=== PATIENT | female | born 1980 | race Caucasian/White ===

== ENCOUNTER 2024-03-14 06:36 | Day surgery (SDC) | payer OTHER, SELFPAY ==
[2024-03-14] VITALS (10 sets, daily range): BP systolic 102–118; BP diastolic 51–72; BMI 40.0
[2024-03-14] MEDS: Pyridium 200 MG PO (10:22)
[2024-03-14] MEDS: NORMOSOL-R 1000 IV (10:31)
[2024-03-14] MEDS: TYLENOL 1000 MG PO (10:36)
[2024-03-14] MEDS: DUONEB 3 ML INH (10:45)
[2024-03-14] MEDS: ROXICODONE 5 MG PO (15:23)
== END 2024-03-14 15:34 | disposition home or self-care (01) ==
LOC: SDS 06:36
PROVIDERS: ATTENDING PHYSICIAN Obstetrics & Gynecology
DX: N39.3 Stress incontinence (female) (male) (principal)
CPT/HCPCS: 57288; 94640; C1771

== ENCOUNTER → 2024-07-28 15:05 | Outpatient (REF) | payer OTHER, SELFPAY | LOC: RAD 15:05 | PROVIDERS: ATTENDING PHYSICIAN Nurse Practitioner | DX: M25.512 Pain in left shoulder (principal) | CPT/HCPCS: 73030 ==

== ENCOUNTER 2024-08-23 18:48 | Outpatient (RCR) | payer OTHER, SELFPAY | END 2024-08-23 23:59 | disposition home or self-care (01) | LOC: RPT 18:48 | PROVIDERS: ATTENDING PHYSICIAN Obstetrics & Gynecology | DX: N39.3 Stress incontinence (female) (male) (principal); R39.14 Feeling of incomplete bladder emptying; M62.89 Other specified disorders of muscle; Z73.6 Limitation of activities due to disability | CPT/HCPCS: 97110; 97162 ==

== ENCOUNTER 2024-09-18 19:00 | Outpatient (RCR) | payer OTHER, SELFPAY | END 2024-09-18 23:59 | disposition home or self-care (01) | LOC: RPT 19:00 | PROVIDERS: ATTENDING PHYSICIAN Obstetrics & Gynecology | DX: N39.3 Stress incontinence (female) (male) (principal); R39.14 Feeling of incomplete bladder emptying; M62.89 Other specified disorders of muscle; Z73.6 Limitation of activities due to disability | CPT/HCPCS: 97014; 97110; 97112; 97140; 97530 ==

== ENCOUNTER 2024-10-25 15:00 | Outpatient (RCR) | payer OTHER, SELFPAY | END 2024-10-25 23:59 | disposition home or self-care (01) | LOC: RPT 15:00 | PROVIDERS: ATTENDING PHYSICIAN Obstetrics & Gynecology | DX: N39.3 Stress incontinence (female) (male) (principal); R39.14 Feeling of incomplete bladder emptying; M62.89 Other specified disorders of muscle; Z73.6 Limitation of activities due to disability | CPT/HCPCS: 97014; 97110; 97112; 97140; 97530 ==

== ENCOUNTER 2024-11-08 17:02 | Outpatient (RCR) | payer OTHER, SELFPAY | END 2024-11-08 23:59 | disposition home or self-care (01) | LOC: RPT 17:02 | PROVIDERS: ATTENDING PHYSICIAN Obstetrics & Gynecology | DX: N39.3 Stress incontinence (female) (male) (principal); R39.14 Feeling of incomplete bladder emptying; M62.89 Other specified disorders of muscle; Z73.6 Limitation of activities due to disability | CPT/HCPCS: 97014; 97110; 97112; 97140; 97530 ==

== ENCOUNTER → 2024-12-20 19:04 | Outpatient (REF) | payer OTHER, SELFPAY | LOC: WDC 19:04 | PROVIDERS: ATTENDING PHYSICIAN Obstetrics & Gynecology Gynecology; FAMILY PHYSICIAN Nurse Practitioner | DX: Z12.31 Encounter for screening mammogram for malignant neoplasm of breast (principal) | CPT/HCPCS: 77063; 77067 ==

== ENCOUNTER 2024-12-27 17:03 | Outpatient (RCR) | payer OTHER, SELFPAY | END 2024-12-27 23:59 | disposition home or self-care (01) | LOC: RPT 17:03 | PROVIDERS: ATTENDING PHYSICIAN Obstetrics & Gynecology | DX: N39.3 Stress incontinence (female) (male) (principal); R39.14 Feeling of incomplete bladder emptying; M62.89 Other specified disorders of muscle; Z73.6 Limitation of activities due to disability | CPT/HCPCS: 97014; 97110; 97112; 97140; 97530 ==

== ENCOUNTER 2025-01-08 17:03 | Outpatient (RCR) | payer OTHER, SELFPAY | END 2025-01-08 23:59 | disposition home or self-care (01) | LOC: RPT 17:03 | PROVIDERS: ATTENDING PHYSICIAN Obstetrics & Gynecology | DX: N39.3 Stress incontinence (female) (male) (principal); R39.14 Feeling of incomplete bladder emptying; M62.89 Other specified disorders of muscle; Z73.6 Limitation of activities due to disability | CPT/HCPCS: 97014; 97110; 97112; 97140; 97530 ==

== ENCOUNTER 2025-02-14 11:08 | Outpatient (RCR) | payer OTHER, SELFPAY | END 2025-02-14 12:27 | disposition home or self-care (01) | LOC: RPT 11:08 | PROVIDERS: ATTENDING PHYSICIAN Obstetrics & Gynecology | DX: N39.3 Stress incontinence (female) (male) (principal); R39.14 Feeling of incomplete bladder emptying; M62.89 Other specified disorders of muscle; Z73.6 Limitation of activities due to disability | CPT/HCPCS: 97014; 97110; 97140; 97530 ==

== ENCOUNTER 2025-06-17 21:46 | Emergency (ER) | payer OTHER, SELFPAY ==
[2025-06-17 22:06] VITALS: BP 139/81
[2025-06-18 01:37] VITALS: BMI 44.6
[2025-06-18 01:41] VITALS: BP 146/88
[2025-06-18] MEDS: TORADOL 60 MG IM (02:01)
--- NOTE | 2025-06-18 02:18 | ED.GENMED ---
History of Present Illness
General
Chief Complaint: Musculo-Skeletal Complaint
Source: patient
Exam Limitations: none
Time Seen by Provider: 06/18/25 01:47
Nursing documentation reviewed up to this point in time: agreed with
History of Present Illness
History of Present Illness:
This is a 44-year-old woman who has been having pain with left knee, recent evaluation with orthopedics, Dr. Randhawa and underwent steroid injection to her left knee on June 13. She began physical therapy with initial visit with PT on
June 15. She was prescribed meloxicam 15 mg which she takes once daily. This evening while walking in flip-flops she tripped and twisted her left knee with near fall and presents with increased pain of her left knee primarily posterior to
lateral aspect. Patient states she felt and heard a pop in the lateral aspect of her left knee. She denies weakness or numbness. No back pain. No hip nor lower leg pain.
Past History
Past History
ED Past Medical History: Asthma, Other (Obstructive sleep apnea, irritable bowel syndrome) and Other (Osteoarthritis of knee)
ED Past Surgical History: and Gynecological
Social History
Tobacco: Non-smoker
Personal:
Living: with family
Employment: Employed
Family History
Family History: Other (Noncontributory)
Phy Exam
Physical Exam
Physical Exam:
GENERAL: Alert , in no apparent distress
EYE: anicteric
ENT: oral mucosa is moist. No rhinorrhea.
CARDIAC: Regular rate and rhythm. no murmur.
LUNGS: No respiratory distress.
ABDOMEN: Soft, nondistended
NEUROLOGICAL: Alert and oriented x3, no focal neuro deficits.
SKIN: Warm and dry, normal color, skin intact. No rash.
MUSCULOSKELETAL: No C/C/E. peripheral pulses are full and equal b/l. Left knee with mild to moderate tenderness anteriorly as well as mild tenderness laterally and posteriorly. There is no joint effusion. Full passive range of motion without
difficulty. No crepitus. No ecchymosis nor erythema. Negative laxity.
PSYCH: Normal and appropriate interaction.
Course
Orders/Labs/Results
Orders:
Orders
06/17/25 22:16
Knee, Left 4 or More Views [CR Knee - Left 4 Or More View*] Urgent
Comment:
Reason For Exam: Pain after fall
06/18/25 01:55
Knee Immobilizer Left-Treatmen ONCE
Ketorolac [Toradol] 60 mg IM NOW STA
Vital Signs
Initial and Last Documented VS:
Initial Vital Signs
Temp Pulse Resp BP Pulse Ox
98.4 F 72 18 139/81 97
06/17/25 22:06 06/17/25 22:06 06/17/25 22:06 06/17/25 22:06 06/17/25 22:06
Last Documented Vital Signs
Temp Pulse Resp BP Pulse Ox
98.4 F 82 20 146/88 98
06/17/25 22:06 06/18/25 01:41 06/18/25 01:41 06/18/25 01:41 06/18/25 02:23
MDM/Problems Addressed
Differential Diagnosis Includes:
Concern for acute ligamentous injury/sprain strain of left knee. There is no significant effusion/soft tissue swelling nor laxity on exam thus internal derangement is less likely.
Concern for knee fracture.
Concern for exacerbation of known DJD of left knee.
X-ray of left knee shows mild tricompartmental DJD. No evidence of fracture nor dislocation.
Will give a one-time dose of Toradol and patient will be placed in knee immobilizer and provide crutches for ambulation assistance.
Recommend she continue meloxicam.
Continue physical therapy.
Prompt follow-up with orthopedics for further evaluation.
Chronic conditions affecting care: Other (Known DJD of left knee)
Acute Exacerbation and/or Progression of Chronic Illness: Other (Exacerbation of DJD left knee)
*Radiology
Radiology exam reviewed: radiology read reviewed
*Pulse Oximetry
SaO2: 98
Oxygen Mode of Delivery: Room air
Patient hypoxic: no
*Critical Care Note
Total Time (30-74mins, 75-104mins- exclusive of procedures): Not Applicable
ED Attending Note
-
Portions of this chart may have been created with voice recognition software.� Occasional wrong word or��sound alike� substitutions may have occurred due to the inherent limitations of voice recognition software.
Discharge Plan
Departure
Patient Disposition: Home (Routine Discharge)
Date of Disposition: 06/18/25
Time of Disposition: 02:19
Patient with high blood pressure during this ER visit?: No
Condition: Good
Discharge Problem:
acute left knee strain, Tricompartmental DJD of left knee
Instructions: How to Use Crutches, Knee Immobilizer (DC), Knee Sprain (DC)
Prescriptions:
No Action
escitalopram oxalate [Lexapro] 20 mg Tablet
20 mg PO DAILY
bupropion HCl [Wellbutrin XL] 300 mg Tablet Extended Release 24 Hr
300 mg PO DAILY
albuterol sulfate 90 mcg/actuation Hfa Aerosol Inhaler
2 puff INHALATION PRN PRN (Reason: SOB, Wheezes)
ascorbic acid (vitamin C) [Vitamin C] 1,000 mg Tablet
1,000 mg PO DAILY
cholecalciferol (vitamin D3) [Vitamin D3] 125 mcg (5,000 unit) Tablet
125 mcg PO DAILY
amoxicillin-pot clavulanate [Augmentin] 875-125 mg Tablet
1 tab PO BID
Referrals:
Geoffrey Randhawa MD [Active, Orthopedics] - Call in 1-3 days for appt
Akosua Durham CRNP [Family Provider, Internal Medicine]
Interventions
Interventions:
*Risk Screen - Suicide Last Done: 06/18/25 01:35
*General Assessment Last Done: 06/18/25 01:35
*Neglect/Abuse Screening Last Done: 06/18/25 01:35
*ED- Fall Risk Assessment Last Done: 06/18/25 01:35
*ED COVID-19 Vaccine History Last Done: 06/17/25 22:06
*Nursing Disposition Last Done: 06/18/25 02:15
ED-Musculoskeletal Assessment Last Done: 06/18/25 01:35
Discharge Date and Time
Discharge Date/Time: 06/18/25 02:31
Print Language: BELARUSIAN
== END 2025-06-18 02:31 | disposition home or self-care (01) ==
LOC: EMR 21:46
PROVIDERS: EMERGENCY PHYSICIAN Emergency Medicine; FAMILY PHYSICIAN Nurse Practitioner
DX: S86.912A Strain of unspecified muscle(s) and tendon(s) at lower leg level, left leg, initial encounter (principal); M17.12 Unilateral primary osteoarthritis, left knee; W01.0XXA Fall on same level from slipping, tripping and stumbling without subsequent striking against object, initial encounter; G47.33 Obstructive sleep apnea (adult) (pediatric); J45.909 Unspecified asthma, uncomplicated
CPT/HCPCS: 29505; 99283; 73564